=== PATIENT | male | born 1975 ===

== ENCOUNTER 2024-04-19 07:46 | Outpatient (CLI) | payer MEDICARE, MEDICAID, SELFPAY ==
--- NOTE | 2024-05-14 13:06 | P.SLEEP_ITS ---
Sleep Study Date of Study: 04/19/24 Ordering Provider: MITCH Bonilla Interpreting Physician: Anna Mendez DO Sleep Study Type: Polysomnogram Height: 1.83 m Weight: 251 kg Body Mass Index: 75.0 Neck Circumference (inches): 17 [place]: 6 Reason for Sleep Study Daytime hypersomnia Sleep History The patient is a 49-year-old male that had a sleep study ordered by his psychiatrist for evaluation daytime hypersomnia. The patient denies awakening from sleep short of breath. The patient denies awakening at night with heartburn, belching or. He rarely snores and is never loud enough that others complain. He rarely has trouble sleeping when he has a cold. He denies within up gasping for air throughout the night. He denies having breathing problems at night observed by himself or others. He rarely sweats excessively at night. He rarely has heart palpitations or irregular heartbeats during the night. He occasionally falls asleep during the day but never while driving. He denies sleep paralysis, cataplexy and hypnagogic / hypnopompic hallucinations. He denies having trouble at school or work due to sleepiness. He rarely feels afraid room going to sleep. He rarely has nightmares. He occasionally remembers his dreams. He frequently has thoughts racing through his mind. He occasionally feels sad or depressed. Frequently has muscular tension. He rarely notices parts of his body jerk. He rarely kicks during the night. He denies having crawling and aching feelings in his legs and denies having leg pain during the night. He denies grinding his teeth during sleep and denies a wakening with morning jaw pain. He is rarely bothered by pain during the day and never awakened by pain during the night. He rarely wakes up feeling stiff morning. He rarely wakes up with sore or achy muscles. He rarely wakes up with pain in the neck, spine or other joints. He goes to bed at 8:30 p.m. on weekdays and at 9:00 p.m. on the weekends. He takes him 15 minute fall asleep. He wakes up 1-2 times throughout the night to urinate and is able to fall back asleep within 5-10 minutes. He wakes up at 7:00 a.m. on both weekdays and weekends. he typically gets 90 10 hours of sleep per night. He will stay in bed for 10-15 minutes after waking up in the morning. He currently lives in a detention. He denies consuming any caffeinated beverages within 2 hours of bedtime. He denies engaging in physical exercise before bedtime. He will watch television before falling asleep but denies reading. He will take naps in afternoon or the evening but they are not refreshing. He consumes 1-2 caffeinated beverages per day. He denies alcohol and recreational drug use. [facility] Past Medical History Medical History Bipolar disorder Schizoaffective disorder Congestive heart failure Pre-diabetes Surgical History Surgical History History of wisdom tooth extraction Social History Social History Smoking status: Never smoker Medications Home Medications ?Medication ?Instructions ?Recorded ?Confirmed ?Type cholecalciferol (vitamin D3) 25 25 mcg PO DAILY 02/21/24 02/21/24 History mcg (1,000 unit) capsule (Vitamin D3) clozapine 50 mg tablet 25 mg PO BID 02/21/24 02/21/24 History divalproex 500 mg tablet,delayed 500 mg PO Q12H 02/21/24 02/21/24 History release docusate sodium 100 mg capsule 100 mg PO BID 02/21/24 02/21/24 History ferrous sulfate 325 mg (65 mg 325 mg PO DAILY 02/21/24 02/21/24 History iron) tablet,delayed release fluoxetine 40 mg capsule 40 mg PO DAILY 02/21/24 02/21/24 History omeprazole 20 mg capsule,delayed 20 mg PO DAILY 02/21/24 02/21/24 History release paliperidone palmitate 234 mg/1.5 234 mg IM MONTHLY 02/21/24 02/21/24 History mL intramuscular syringe (Invega Sustenna) Sleep Procedure A full night polysomnogram using the [employer] multi-channel system recorded the standard physiologic parameters including EEG, EOG, submentalis EMG, anterior tibialis EMG, EKG, body position, nasal and oral airflow using nasal pressure sensor and thermistor.? Respiratory parameters of chest and abdominal movements were recorded with Respiratory Inductance Plethysmography belts. Oxygen saturation was recorded by pulse oximetry. Video monitoring was also performed. Sleep stages, periodic limb movements, and EEG arousals were scored in 30 second epochs according to the criteria of the AASM Scoring Manual. The Apnea-Hypopnea Index was calculated using [facility] guidelines for definition of hypopnea with 4% O2 desaturations while scoring respiratory events. Sleep Architecture The total recording time was 550.2 minutes.? The total sleep time was 468.5 minutes. Sleep latency was 12.5 minutes. REM latency was 170.5 minutes. Sleep efficiency was 85.1%. The patient had 32 awakenings for an awakening index of 4.1. Wake after sleep onset time was 67.5 minutes. The patient spent 24.0 minutes, 5.1% of total sleep time in Stage N1. The patient spent 384.5 minutes, 82.1% in Stage N2. The patient spent 35.5 minutes, 7.6% in Stage N3. The patient spent 24.5 minutes, 5.2% in Stage REM sleep. Respiratory Analysis The patient had 4 hypopneas for an overall Apnea Hypopnea Index of 0.5. The REM Apnea Hypopnea Index was 9.8. The NREM Apnea Hypopnea Index was 0.3. The patient had a Central Apnea Hypopnea Index of 0. There was no evidence of [place]-Mario Respirations. Arousals There were 44 total arousals for an arousal index of 5.6. There were 32 spontaneous arousals for an index of 4.1. There were 3 arousals due to respirato ry events for an index of 0.4. There were 0 arousals due to periodic limb movements for an index of 0.? There were 9 arousals due to isolated limb movements for an index of 1.2. Periodic Limb Movements The patient had 9 isolated limb movements with an index of 1.2. The patient had 0 periodic limb movements with an index of 0. Patient had a total of 9 limb movements with a total limb movement index of 1.2. Oximetry Data The patient had an average oxygen saturation of 94.5% in sleep with a minimum oxygen saturation of 87.0% and a maximum oxygen saturation of 98.0%. The patient had 5 oxygen desaturations that were 4% or greater resulting in an Oxygen Desaturation Index of 0.6.? The patient spent 2.7 minutes, 0.5% of total sleep time with an oxygen saturation below 88%. Snoring Profile Mild snoring was present intermittently throughout the study. Cardiac Profile The EKG showed normal sinus rhythm.?No arrhythmias or premature beats were seen. The patient had an average pulse rate of 72.4 bpm with a minimum pulse of rate of 57.0 bpm and a maximum pulse rate of 88.0 bpm.? EEG Profile No signs of seizure activity seen. Alpha intrusion was seen throughout the study. Assessment and Plan Assessment and Plan (1) Snoring: Code(s): R06.83 - Snoring Status: Acute Assessment and Plan: The patient had an overall AHI of 0.5 with desaturation down to 87%. This is not consistent with sleep disordered breathing. The patient did have alpha intrusion present throughout the majority of the study. Alpha intrusion is typically seen in patient with an uncontrolled mood disorder, chronic pain or other sleep disorders. Alpha intrusion typically presents as unrefreshing sleep. Treatment of alpha intrusion is directed towards the underlying cause. Data The data obtained during this sleep study is adequate for interpretation. Certification This sleep study has been reviewed by a board certified sleep medicine physician.
[2024-05-15 10:21] VITALS: BMI 75.0
== END 2024-04-20 06:52 | disposition home or self-care (01) ==
PROVIDERS: Visit Provider Physician Assistant
DX: R06.83 Snoring (principal); G47.10 Hypersomnia, unspecified
CPT/HCPCS: 95810